=== PATIENT | female | born 1965 | race American Indian/Alaskan Native ===

== ENCOUNTER 2018-04-21 18:20 | Emergency (ER) | payer OTHER, BC ==
[2018-04-21 21:11] VITALS: BP 171/83
--- NOTE | 2018-04-21 21:55 | Emergency Department Report ---
Minor Respiratory - HPI Chief Complaint: Upper Respiratory Infection Stated Complaint: COUGHING CHEST BURN Duration: 1 week Pain Location: Throat, Nose, Chest Severity: moderate Minor Respiratory: Yes Rhinorrhea, Yes Sore Throat, Yes Able to Tolerate Fluids, Yes Cough, Yes Sick Contacts, Yes Shortness of Breath, Yes Fever, No Ear Pain, No Hemoptysis, No Chest Pain (chest tightness) Other History: This is a 53-year-old -[place] female who presents with a cough, chest discomfort with cough and chills for 1 week. Patient states her throat is sore and she noticed her voice changed last night. She is currently taking NyQuil which is improved fever but she continues to have cough, congestion, and chest discomfort. She denies shortness of breath, myalgia, f ever, nausea, vomiting, diarrhea, or abdominal pain ED Review of Systems ROS: Stated complaint: COUGHING CHEST BURN Other details as noted in HPI Constitutional: chills. denies: fever ENT: throat pain, congestion. denies: ear pain Respiratory: cough. denies: shortness of breath, wheezing Cardiovascular: denies: chest pain (chest discomfort with cough), palpitations Gastrointestinal: denies: abdominal pain, nausea, diarrhea Musculoskeletal: denies: back pain, joint swelling, arthralgia, myalgia Skin: denies: rash, lesions Neurological: denies: headache, weakness, paresthesias Psychiatric: denies: anxiety, depression ED Past Medical Hx - Past Medical History Previous Medical History?: Yes Additional medical history: Sinus issues - Surgical History Past Surgical History?: Yes Additional Surgical History: breast reduction, tubal ligation. Tonsils - Social History Smoking Status: Never Smoker Substance Use Type: None - Medications Home Medications: Home Medications Medication Instructions Recorded Confirmed Last Taken Type Prednisone [Prednisone 10 mg 10 mg PO .TAPER #1 tab.ds.pk 06/22/13 Unknown Rx (6-Day Pack, 21 Tabs)] ALBUTEROL Inhaler(NF) [VENTOLIN 1 puff IH Q4-6H PRN #1 inha 04/21/18 Unknown Rx Inhaler(NF)] Azithromycin [Zithromax Z-WEN] 250 mg PO DAILY #6 tablet 04/21/18 Unknown Rx Benzonatate [Tessalon Perles] 100 mg PO Q8HR PRN #30 capsule 04/21/18 Unknown Rx Fluticasone [Flonase] 1 spray NS QDAY #1 bottle 04/21/18 Unknown Rx Minor Respiratory Exam - Exam General: Vital signs noted. No distress. Alert and acting appropriately. HEENT: Yes Pharyngeal Erythema (erythematous posterior pharynx, uvula midline), Yes Moist Mucous Membranes, Yes Rhinorrhea (turbinates congested with clear discharge), No Pharyngeal Exudates, No Conjuctival Injection, No Frontal Tenderness, No Maxillary Tenderness Ear: Neither TM Bulge, Neither TM Erythema, Neither EAC Pain, Neither EAC Discharge Neck: Yes Supple, No Adenopathy Lungs: Yes Good Air Exchange, Yes Cough, No Wheezes, No Ronchi, No Stridor, No Labored Respirations, No Retractions, No Use of Accessory Muscles, No Other Abnormal Lung Sounds Heart: Yes Regular, No Murmur Abdomen: Yes Normal Bowel Sounds, No Tenderness, No Peritoneal Signs Skin: No Rash, No Edema Neurologic: Alert and oriented, no deficits. Musculoskeletal: Unremarkable. ED Course Vital Signs 04/21/18 21:01 Temperature 98.0 F Pulse Rate 71 Respiratory 20 Rate Blood Pressure 171/83 O2 Sat by Pulse 98 Oximetry ED Medical Decision Making - Radiology Data Radiology results: report reviewed FINAL REPORT EXAM: XR CHEST ROUTINE 2V HISTORY: cough TECHNIQUE: 2 views of the chest. PRIORS: None. FINDINGS: The cardiomediastinal silhouette appears normal. The lungs are clear. The bones and soft tissues are unremarkable. IMPRESSION: No evidence of acute cardiopulmonary disease - Medical Decision Making 53 y.o. female that presents with upper respiratory symptoms. Patient examined by me and stable. No distress noted. Vitals normal. A chest x-ray was obtained and dictated by radiologist. The report was reviewed by myself with no acute cardiopulmonary findings. Findings are consistent with a bronchitis. Start flonase, Tessalon Perles, albuterol inhaler, and azithromycin. She is instructed to take Tylenol or ibuprofen for aches and pains, to drink a lot of liquids to stay home and rest. She was given a note to return to work in 2 days. Follow up with Primary Care Provider in 2-3 days. She will return to the emergency room if she does not get better as discussed. Patient discharged home stable. Critical care attestation.: If time is entered above; I have spent that time in minutes in the direct care of this critically ill patient, excluding procedure time. ED Disposition Clinical Impression: Cough, Bronchitis, Chills (without fever) Disposition: DC-01 TO HOME OR SELFCARE Is pt being admited?: No Does the pt Need Aspirin: No Condition: Stable Instructions: Acute Bronchitis (ED) Additional Instructions: Symptoms are most likely coming from for infection. You are to take ibuprofen every 6 hours alternated with Tylenol every 4 hours for pain. You may not feel like eating which is to be expected. Try eating a bland diet as tolerated. Wash hands frequently. F/U with Primary Care Provider. Return to ER if fever, SOB, or difficulty breathing after 48 hours of supportive care. Prescriptions: ALBUTEROL Inhaler(NF) [VENTOLIN Inhaler(NF)] 1 puff IH Q4-6H PRN #1 inha PRN Reason: Shortness Of Breath Azithromycin [Zithromax Z-WEN] 250 mg PO DAILY #6 tablet Benzonatate [Tessalon Perles] 100 mg PO Q8HR PRN #30 capsule PRN Reason: Cough Fluticasone [Flonase] 1 spray NS QDAY #1 bottle Referrals: [facility] [Other] - 3-5 Days Forms: Work/School Release Form(ED) Time of Disposition: 23:22
--- NOTE | 2018-04-21 23:16 | XRay Report ---
FINAL REPORT EXAM: XR CHEST ROUTINE 2V HISTORY: cough TECHNIQUE: 2 views of the chest. PRIORS: None. FINDINGS: The cardiomediastinal silhouette appears normal. The lungs are clear. The bones and soft tissues are unremarkable. IMPRESSION: No evidence of acute cardiopulmonary disease
== END 2018-04-21 23:25 | disposition home or self-care (01) ==
LOC: ED 18:20
DX: J40 Bronchitis, not specified as acute or chronic (principal)
CPT/HCPCS: 71046

== ENCOUNTER 2018-12-04 15:31 | Emergency (ER) | payer OTHER, BC ==
--- NOTE | 2018-12-04 17:04 | Event Note ---
ED Screening Note Date of service: 12/04/18 Time: 15:55 ED Screening Note: Abdominal pain x 3 weeks with vomiting, chills . Denies any back pain or urinary symptoms. Coughing ,PND x 2 days. Takes flonase. Was taking zyrtec but stop. Feeling tired started yesterday. Pain 8/10 and feels sharp and throbbing. This initial assessment/diagnostic orders/clinical plan/treatment(s) is/are subject to change based on patients health status, clinical progression and re- assessment by fellow clinical providers in the ED. Further treatment and workup at subsequent clinical providers discretion. Patient/guardian urged not to elope from the ED as their condition may be serious if not clinically assessed and managed. Initial orders include: labs/
[2018-12-04 17:40] LABS: Basophils % (Auto) 1.3 % (0.0-1.8); Eosinophils # (Auto) 0.1 K/mm3 (0.0-0.4); Eosinophils % (Auto) 1.2 % (0.0-4.3); Hematocrit 37.9 % (30.3-42.9); Hemoglobin 11.8 gm/dl (10.1-14.3); Lymphocytes # (Auto) 3.1 K/mm3 (1.2-5.4); Lymphocytes % (Auto) 48.5 % (13.4-35.0); Mean Corpuscular HGB Conc 31 % (30-34); Mean Corpuscular Volume 71 fl (79-97); Monocytes # (Auto) 0.7 K/mm3 (0.0-0.8); Platelet Count 277 K/mm3 (140-440); Red Blood Count 5.37 M/mm3 (3.65-5.03); Red Cell Distribution Width 14.5 % (13.2-15.2)
[2018-12-04 17:41] LABS: Basophils # (Auto) 0.1 K/mm3 (0.0-0.1)
[2018-12-04 17:50] LABS: Alanine Aminotransferase 10 units/L (7-56); Albumin 4.3 g/dL (3.9-5)
[2018-12-04 17:55] LABS: Bilirubin,Direct < 0.2 mg/dL (0-0.2)
[2018-12-04 17:58] LABS: Bilirubin,Urine NEG (Negative); Blood,Urine NEG (Negative); Calcium Oxalate Crystals,Urine 2+; Color,Urine Yellow (Yellow); Mucus,Urine FEW /HPF; Protein,Urine <15 mg/dL mg/dL (Negative); Urobilinogen,Urine < 2.0 mg/dL (<2.0); WBC,Urine < 1.0 /HPF (0.0-6.0)
--- NOTE | 2018-12-04 18:50 | Emergency Department Report ---
ED Abdominal Pain HPI - General Chief Complaint: Upper Respiratory Infection Stated Complaint: COUGH/ABD PAIN Time Seen by Provider: 12/04/18 18:42 Source: patient Mode of arrival: Ambulatory Limitations: No Limitations - History of Present Illness Initial Comments: 53-year-old female presents to ED with lower abdominal pain 3 weeks. Patient states she was initially seen approximately 2-1/2 weeks ago by her PCP, was given a prescription for an unknown medication, states her PCP said that it may be constipation or kidney stones. Patient states pain is in the suprapubic area, is intermittent, reports urinary frequency. Patient denies vaginal dis charge, vaginal bleeding, dysuria, fever. Patient states pain sometimes radiates around to the right lower back. MD Complaint: abdominal pain -: week(s) (3) Location: suprapubic Radiation: R flank Migration to: no migration Severity: moderate Quality: sharp Consistency: intermittent Improves With: nothing Worsens With: nothing Associated Symptoms: nausea. denies: diarrhea, fever, constipation, dysuria, hematuria - Related Data Previous Rx's Medication Instructions Recorded Last Taken Type Prednisone [Prednisone 10 mg 10 mg PO .TAPER #1 tab.ds.pk 06/22/13 Unknown Rx (6-Day Pack, 21 Tabs)] ALBUTEROL Inhaler(NF) [VENTOLIN 1 puff IH Q4-6H PRN #1 inha 04/21/18 Unknown Rx Inhaler(NF)] Azithromycin [Zithromax Z-WEN] 250 mg PO DAILY #6 tablet 04/21/18 Unknown Rx Benzonatate [Tessalon Perles] 100 mg PO Q8HR PRN #30 capsule 04/21/18 Unknown Rx Fluticasone [Flonase] 1 spray NS QDAY #1 bottle 04/21/18 Unknown Rx Naproxen [Naprosyn] 500 mg PO BID #20 tablet 12/04/18 Unknown Rx traMADol [Ultram] 50 mg PO Q6HR PRN #7 tablet 12/04/18 Unknown Rx Allergies Allergy/AdvReac Type Severity Reaction Status Date / Time No Known Allergies Allergy Verified 06/22/13 17:55 ED Review of Systems ROS: Stated complaint: COUGH/ABD PAIN Other details as noted in HPI Comment: All other systems reviewed and negative Constitutional: denies: chills, fever Gastrointestinal: abdominal pain, nausea. denies: vomiting, diarrhea, constipation Genitourinary: frequency. denies: dysuria, discharge, abnormal menses ED Past Medical Hx - Past Medical History Previous Medical History?: Yes Additional medical history: Sinus issues - Surgical History Past Surgical History?: Yes Additional Surgical History: breast reduction, tubal ligation. Tonsils - Social History Smoking Status: Never Smoker Substance Use Type: Prescribed - Medications Home Medications: Home Medications Medication Instructions Recorded Confirmed Last Taken Type Prednisone [Prednisone 10 mg 10 mg PO .TAPER #1 tab.ds.pk 06/22/13 Unknown Rx (6-Day Pack, 21 Tabs)] ALBUTEROL Inhaler(NF) [VENTOLIN 1 puff IH Q4-6H PRN #1 inha 04/21/18 Unknown Rx Inhaler(NF)] Azithromycin [Zithromax Z-WEN] 250 mg PO DAILY #6 tablet 04/21/18 Unknown Rx Benzonatate [Tessalon Perles] 100 mg PO Q8HR PRN #30 capsule 04/21/18 Unknown Rx Fluticasone [Flonase] 1 spray NS QDAY #1 bottle 04/21/18 Unknown Rx Naproxen [Naprosyn] 500 mg PO BID #20 tablet 12/04/18 Unknown Rx traMADol [Ultram] 50 mg PO Q6HR PRN #7 tablet 12/04/18 Unknown Rx ED Physical Exam - General Limitations: No Limitations General appearance: alert, in no apparent distress - Head Head exam: Present: atraumatic, normocephalic - Eye Eye exam: Present: normal appearance - ENT ENT exam: Present: mucous membranes moist - Neck Neck exam: Present: normal inspection - Respiratory Respiratory exam: Present: normal lung sounds bilaterally. Absent: respiratory distress - Cardiovascular Cardiovascular Exam: Present: regular rate, normal rhythm - GI/Abdominal GI/Abdominal exam: Present: soft, tenderness (mild suprapubic tenderness). Absent: distended - Extremities Exam Extremities exam: Present: normal inspection - Back Exam Back exam: Present: normal inspection. Absent: CVA tenderness (R), CVA tenderness (L) - Neurological Exam Neurological exam: Present: alert, oriented X3 - Psychiatric Psychiatric exam: Present: normal affect, normal mood - Skin Skin exam: Present: warm, dry, intact, normal color ED Course Vital Signs 12/04/18 12/04/18 15:39 20:44 Temperature 97.8 F 98.1 F Pulse Rate 82 72 Respiratory 18 20 Rate Blood Pressure 138/79 Blood Pressure 132/77 [Left] O2 Sat by Pulse 98 100 Oximetry ED Medical Decision Making - Lab Data Result diagrams: 12/04/18 17:11 12/04/18 18:54 - Radiology Data Radiology results: report reviewed, image reviewed - Medical Decision Making Patient informed of breast finding on CT scan. States she believes her last mammogram was last year and it was normal. Patient states she has a PCP and an [employer]. I advised patient to follow up with them so that she can have a mammogram to evaluate this breast finding. - Differential Diagnosis uti, ovarian cyst, fibroids, diverticulitis Critical care attestation.: If time is entered above; I have spent that time in minutes in the direct care of this critically ill patient, excluding procedure time. ED Disposition Clinical Impression: Uterine fibroid Disposition: DC- TO HOME OR SELFCARE Is pt being admited?: No Condition: Stable Instructions: Uterine Fibroids (ED), Abdominal Pain (ED) Additional Instructions: Please follow up with your physicians. You will need further work-up with a mammogram to evaluate breast tissue findings on CT scan. Prescriptions: Naproxen [Naprosyn] 500 mg PO BID #20 tablet traMADol [Ultram] 50 mg PO Q6HR PRN #7 tablet PRN Reason: Pain Referrals: PRIMARY CARE,MD [Primary Care Provider] - 3-5 Days Forms: Accompanied Note, Work/School Release Form(ED) Time of Disposition: 20:09
[2018-12-04 19:44] LABS: BUN/Creatinine Ratio 17; Blood Urea Nitrogen 10 mg/dL (7-17); Calcium 9.7 mg/dL (8.4-10.2); Hemolysis Index 0
--- NOTE | 2018-12-04 19:46 | Cat Scan Report ---
CT abdomen pelvis wo con INDICATION / CLINICAL INFORMATION: MAIN: lower abdominal pain, NAUSEA, VOMITING. TECHNIQUE: Axial CT imaging of abdomen and pelvis was obtained without contrast. Coronal and sagittal reformatte d imaging obtained and reviewed. All CT scans at this location are performed using CT dose reduction for ALARA by means of automated exposure control. COMPARISON: None available. FINDINGS: CT abdomen with out contrast demonstrates normal appearance of the liver, spleen, pancreas, kidneys, and adrenal glands. Prior cholecystectomy. No hydronephrosis or intrarenal calculus identified. CT pelvis demonstrates normal appearance of the appendix. No pelvic mass, free fluid, or focal inflam matory change noted. Incidental note is made of a calcified uterine fibroid measuring 3.2 cm. GI trac t is grossly unremarkable. Visualized lung bases show no acute pulmonary or pleural disease. No acute osseous abnormality. The very first image of the lower chest shows a questionable mass in the right lateral lower breast. The area in question could just represent normal breast tissue but it is unclear based on these image s. IMPRESSION: 1. No acute finding within the abdomen or pelvis. 2. Incidental finding of calcified uterine fibroid. 3.Questionable breast mass versus focal dense fibroglandular breast tissue in the lateral right breas t. If patient has not had recent mammogram, recommend further evaluation with right mammogram and ult rasound in the near future, nonemergent basis. Signer Name: Amena Cortes MD Signed: 12/04/2018 7:41 PM Workstation Name: [id number]
[2018-12-04 20:45] VITALS: BP 132/77
== END 2018-12-04 20:50 | disposition home or self-care (01) ==
LOC: ED 15:31
DX: D25.9 Leiomyoma of uterus, unspecified (principal); Z98.890 Other specified postprocedural states; Z79.899 Other long term (current) drug therapy
CPT/HCPCS: 36415; 74176; 80048; 80076; 81001; 83690; 85025; 99284